=== PATIENT | female | born 1985 | race Caucasian/White ===

== ENCOUNTER 2018-08-28 10:23 | Emergency (ER) | payer OTHER, SELFPAY ==
[2018-08-28 10:24] VITALS: BP 110/71; PULSE 116; RESP 18; TEMP 36.9; O2SAT 99; BMI 23.0
--- NOTE | 2018-08-28 10:38 | RAD_ITS ---
STUDY: X-RAY CHEST REASON FOR EXAM: Female, 32 years old. Right-sided rib pain, chills, feels unwell TECHNIQUE: PA and lateral views of the chest. COMPARISON: 08/02/2016 FINDINGS: Rounded airspace consolidation of the posterior lateral right lower lobe is seen on both frontal and lateral views, new since 2017. There is no demonstrated pleural abnormality. Normal size heart. Normal mediastinum and sukh. Normal visualized pulmonary arteries. Normal visualized aortic arch and descending thoracic aorta. Normal visualized thoracic spine. Normal visualized ribs, clavicles, and shoulders. There is no demonstrated abnormality of the visualized soft tissue structures of the upper abdomen. RAD/Chest PA and Lateral IMPRESSION: Right lower lobe pneumonia. Follow-up chest x-ray after appropriate medical therapy to document resolution is recommended. Electronically Signed: Antony Baker MD at 11:37 EST , Service support ,
[2018-08-28 11:10] LABS: D-Dimer Quantitative (DVT/PE) 0.37 FEU/ug/m (0.27-0.49)
--- NOTE | 2018-08-28 12:22 | ED.VISSUMM ---
- ER Visit Summary Date of Service: 08/28/18 Chief Complaint: Right rib pain History of Present Illness: The patient is a 32 F who has pain in the right lower rib area. It started yesterday. It is sharp. It is worse with breathing and with movement. She took ibuprofen which did help with her pain. She denies any cough. She did not get a flu shot this year. She denies any injuries. She went to an urgent care and they were concerned about her gallbladder because her temperature was 100.4 and they thought she had right upper quadrant pain. Physical Examination: Vital signs reviewed. HEENT exam unremarkable. Heart is regular rate and rhythm without murmurs. Lungs are clear to auscultation. Abdomen is soft and nontender. Extremities reveal no edema. Skin exam normal. Neurologic exam normal. Test Results: The patient's temperature is normal here. I did check a d-dimer and it was 0.37. Her chest x-ray however does have a right lower lobe infiltrate. This is likely causing some irritation which is why she is having pain. I will give her a azithromycin. She will continue NSAIDs. She will follow-up with her PCP Emergency Department Course and Treatment: [] Treatment Plan: [] Disposition: Discharge Impression: Right lower lobe pneumonia This note was generated with [employer] dictation software. It may contain incorrect words, spelling, and punctuation that were not noted in review of the chart prior to signing ED Disposition - Plan for ED Patient: Referrals: Frederic Thompson MD [Primary Care Provider] -
--- NOTE | 2018-08-28 12:23 | ED.DEP ---
ED Disposition - Plan for ED Patient: Disposition: Home or Assisted Living Instructions: ED Pneumonia Adult Prescriptions: Azithromycin [Zithromax Z-Andre] 250 mg PO UD #1 box Referrals: Frederic Thompson MD [Primary Care Provider] -
[2018-08-28 12:30] VITALS: RESP 18; O2SAT 98
== END 2018-08-28 12:32 | disposition home or self-care (01) ==
PROVIDERS: Emergency Provider Emergency Medicine; Family Provider Family Medicine; PCP Family Medicine
DX: J18.9 Pneumonia, unspecified organism (principal)
CPT/HCPCS: 36415; 71046; 85379; 99282

== ENCOUNTER 2020-04-20 15:38 | Emergency (ER) | payer OTHER, SELFPAY ==
[2020-04-20 15:39] VITALS: BP 142/89; PULSE 104; RESP 17; TEMP 36.2; O2SAT 100; BMI 23.8
--- NOTE | 2020-04-20 16:02 | RAD_ITS ---
STUDY: X-RAY - RIGHT FOOT CLINICAL: Female, 34 years old. RIGHT FOOT PAIN AFTER INJURY AT WORK TECHNIQUE: 3 view(s) of the foot. COMPARISON: None. FINDINGS: Normal calcaneus, and tarsal bones. Surgical screw within the talus free of complication Normal visualized subtalar, talonavicular, calcaneocuboid, tarsal and tarsometatarsal articulations. Normal metatarsi. Normal metatarsophalangeal joint of the great toe. Normal tibial and fibular sesamoid bones. Normal interphalangeal joint of the great toe. Normal phalanges of the great toe. Normal second through fifth metatarsophalangeal joints. Normal interphalangeal joints and phalanges of the lesser toes. The soft tissue structures are unremarkable. RAD/Foot min 3 Views IMPRESSION: Normal x-ray examination of the foot. Electronically Signed: Arthur Maldonado MD at 16:13 EDT , Service support ,
--- NOTE | 2020-04-20 16:28 | ED.VIS.GEN ---
History of Present Illness Chief Complaint: Lower Extremity Injury Informant: Patient Onset: Today Context: Sudden Onset Timing: Continuous Current Severity: Moderate Maximum Severity: Moderate Narrative: The patient is a 34-year-old female that presents to the emergency department with right foot injury. Patient was at work. She states she stepped down and felt something pop in her foot. She was able to bear weight, but throughout the day the pain is worsened. She states she is been unable to walk on it since. She did not fall. She denies other injury. The patient has had prior surgery on her talus remotely. She is otherwise been in her normal state of health. Prior similar symptoms: No Recent Illness/Hospitalization: No Past Medical History - Allergies and Home Meds Allergies/Adverse Reactions: Allergies No Known Allergies Allergy (Verified 04/20/20 15:39) Primary Care Physician: Nieves Hardy DPM [STAFF PHYSICIAN] - 3-5 Days Prior records reviewed: Yes Past Medical History: None Surgical History: noncontributory Smoking Status: Never smoker Review of Systems General: Denies: Chills, Fever, Sweats Eyes: Denies: Visual changes - bilaterally, Diplopia ENT: Denies: Rhinorrhea, Sore throat Cardiovascular: Denies: Chest pain, Palpitations Respiratory: Denies: Dyspnea, Cough, Dyspnea on exertion Gastrointestinal: Denies: Abdominal pain, Nausea, Vomiting, Diarrhea, Melena, Hematochezia Genitourinary: Denies: Dysuria, Hematuria, Frequency Musculoskeletal: Denies: Back pain, Extremity Pain Skin: Denies: Rash, Wounds Neurological: Denies: Headache, Weakness, Numbness Physical Exam Vital Signs/Narrative: Vital Signs Temp Pulse Resp BP Pulse Ox 04/20/20 15:39 97.2 F L 104 H 17 142/89 H 100 Inital Vital Signs reviewed: Yes General: Well nourished, Well developed, No Acute Distress Head: Normocephalic, Atraumatic Eyes: Perrl, EOMI ENT: Moist mucous membranes, No rhinorrhea Neck: Supple, Nontender Cardiovascular: Regular rate, Regular rhythm, No murmurs Respiratory: No distress, CTA bilaterally, Chest nontender Abdomen: Soft, Nontender, Nondistended, Normal bowel sounds Back: Nontender, Normal Inspection Extremities: No edema, Tenderness - Patient is markedly tender over the plantar fascia. Pulses are normal. No contusion. Neurovascularly intact. Skin: Normal color, No rash Neurological: Alert, Oriented x3, Cranial nerves II-XII grossly intact, Normal Strength, Normal Sensation Psychological: Normal affect, Normal Mood Diagnostic/Tx/Re-eval Clinical Impression(s) from Imaging Studies Foot X-Ray 04/20/20 16:02 IMPRESSION: Normal x-ray examination of the foot. Electronically Signed: Arthur Maldonado MD at 16:13 EDT , Service support , - Medical Decision Making X-rays were obtained of the foot. There is no evidence of fracture dislocation. Clinically, I do feel the patient might have a plantar fascial tear, especially where she is tender. She was placed in a boot orthosis and crutches. She will be given a short course of analgesics and work restrictions. She will be given follow-up with outpatient podiatry for reevaluation. Impression 1. Right plantar fascial tear ED Disposition - Plan for ED Patient: Instructions: ED Sprain Foot Prescriptions: Hydrocodone Bitart/Apap 5-325 [[place] 5MG-325MG] 1 tab PO Q6H PRN PRN 3 Days #10 tab PRN Reason: Pain Prescription Printed Referrals: Nieves Hardy DPM [STAFF PHYSICIAN] - 3-5 Days
[2020-04-20] MEDS: HYDROcodone Bitartrate/Apap 5/325 Tablet PO (16:47)
== END 2020-04-20 17:18 | disposition home or self-care (01) ==
LOC: ED 16:42
PROVIDERS: Emergency Provider Emergency Medicine; PCP Family Medicine
DX: S96.811A Strain of other specified muscles and tendons at ankle and foot level, right foot, initial encounter (principal); W22.8XXA Striking against or struck by other objects, initial encounter; Y93.9 Activity, unspecified; Y92.89 Other specified places as the place of occurrence of the external cause; Y99.0 Civilian activity done for income or pay
CPT/HCPCS: 73630; 99283